=== PATIENT | male | born 1980 | race Two or more races ===

== ENCOUNTER 2024-11-08 18:06 | Emergency (ER) | payer MEDICAID ==
[~2024-11-08] VITALS: Ht 177.8 cm; Wt 95.3 kg
[2024-11-08 18:21] VITALS: BP 137/87; TEMP 98.4
[2024-11-08] MEDS ORDERED: POLY10DR LEFTEYE (18:39)
[2024-11-08 18:52] VITALS: O2SAT 100
== END 2024-11-08 18:53 | disposition home or self-care (01) ==
LOC: ER 18:16
DX: H10.9 Unspecified conjunctivitis (principal); I10 Essential (primary) hypertension; K21.9 Gastro-esophageal reflux disease without esophagitis; Z87.442 Personal history of urinary calculi

== ENCOUNTER 2024-11-14 04:01 | Emergency (ER) | payer MEDICAID ==
[~2024-11-14 04:01] MED LIST: POLY10DR LEFTEYE
== END 2024-11-14 05:11 | disposition left against medical advice (07) ==
LOC: ER 04:02
DX: R10.9 Unspecified abdominal pain (principal); Z53.21 Procedure and treatment not carried out due to patient leaving prior to being seen by health care provider

== ENCOUNTER 2025-05-13 22:49 | Emergency (ER) | payer MEDICAID | END 2025-05-14 01:17 | disposition left against medical advice (07) | LOC: ER 22:52 | DX: S69.90XA Unspecified injury of unspecified wrist, hand and finger(s), initial encounter (principal); Z53.21 Procedure and treatment not carried out due to patient leaving prior to being seen by health care provider; X58.XXXA Exposure to other specified factors, initial encounter; Y93.89 Activity, other specified; Y92.89 Other specified places as the place of occurrence of the external cause; Y99.8 Other external cause status ==